=== PATIENT | female | born 1950 | race Caucasian/White ===

== ENCOUNTER → 2021-09-29 08:22 | Outpatient (CLI) | payer MEDICARE, SELFPAY ==
--- NOTE | ~2021-09-29 | XR_ITS ---
EXAMINATION: XR hand BI arthritis min 3V DATE: 09/29/2021 09:04 INDICATION: Polyarticular joint pain TECHNIQUE: Posteroanterior, lateral, and oblique views of the left and of the right hands as well as a ballcatchers view of both hands were obtained. COMPARISON: None. FINDINGS: There is moderate osteoarthritis of multiple interphalangeal joints bilaterally. There is moderate os teoarthritis of the triscaphe joint and severe osteoarthritis of the bilateral first carpometacarpal joints. The soft tissues are unremarkable. No erosions are identified. There is no fracture. IMPRESSION: 1. Polyarticular osteoarthritis. Reviewed, dictated and finalized at location F. ALS COLLECTION TECHNICIAN
--- NOTE | ~2021-09-29 | XR_ITS ---
XR lumbar spine 2-3V DATE: 09/29/2021 09:04 INDICATION: Low back pain, right sciatica TECHNIQUE: AP, lateral, coned lateral lumbosacral views COMPARISON: None FINDINGS: There is moderate dextroscoliosis of the thoracolumbar spine. There is diffuse osteopenia. There is moderate degenerative disease at L2-3, L3-4. There is moderately severe degenerative disc di sease at L4-5. No fracture or bone destruction or spondylolisthesis is evident. The lumbar pedicles are intact. The sacroiliac joints appear normal. There is extensive calcification of the abdominal aorta without evidence of aneurysm. IMPRESSION: Dextroscoliosis Osteopenia Multilevel degenerative disc disease Reviewed, dictated and finalized at location A. E SORTER
--- NOTE | ~2021-09-29 | XR_ITS ---
EXAMINATION: XR chest 2V 09/29/2021 09:04 INDICATION: Low back pain. Chest pain. PROCEDURE: 2 view chest COMPARISON: 03/28/2008 FINDINGS: The lungs are clear. The cardiomediastinal silhouette is within normal limits. There are no pleural effusions. There is no pneumothorax suspected. Pacemaker leads are in expected position. IMPRESSION: 1: NO ACUTE CARDIOPULMONARY DISEASE. Reviewed, dictated and finalized at location B. CARGO SPECIALIST
== END ==
PROVIDERS: PCP Internal Medicine
DX: M54.41 Lumbago with sciatica, right side (principal); I25.10 Atherosclerotic heart disease of native coronary artery without angina pectoris; M19.031 Primary osteoarthritis, right wrist; M19.032 Primary osteoarthritis, left wrist; M85.88 Other specified disorders of bone density and structure, other site; M51.36 Other intervertebral disc degeneration, lumbar region
CPT/HCPCS: 71046; 72100; 73130